=== PATIENT | male | born 1960 | race Caucasian/White ===

== ENCOUNTER 2017-12-25 11:08 | Inpatient (IN) | payer OTHER ==
[~2017-12-25] VITALS: Ht 190.5 cm; Wt 111.1 kg
[2017-12-25 11:12] VITALS: BP 101/70
[2017-12-25 11:37] LABS: HEMATOCRIT 53.1 % (42.0-52.0); HEMOGLOBIN 18.2 gm/dL (14.0-18.0); MCH 31.7 pg (26.0-34.0); MCHC 34.4 g/dL (28.0-37.0); MCV 92.3 fL (80.0-100.0); MPV 7.8 fl. (7.2-11.1); NUCLEATED RBCS 0 /100WBC; PLATELET COUNT* 292 thou/uL (150-400); RBC 5.75 mil/uL (4.50-6.00); RDW-CV 12.4 % (10.5-14.5); WBC 19.6 thou/uL (4.0-11.0)
[2017-12-25 11:38] LABS: URINE BILIRUBIN NEGATIVE (Negative); URINE BLOOD NEGATIVE (Negative); URINE CLARITY CLEAR; URINE COLOR YELLOW; URINE GLUCOSE-RANDOM NEGATIVE (Negative); URINE KETONES TRACE (Negative); URINE LEUKOCYTES-REFLEX NEGATIVE (Negative); URINE NITRITE-REFLEX NEGATIVE (Negative); URINE PROTEIN NEGATIVE (Negative); URINE SPECIFIC GRAVITY >= 1.030 (1.005-1.030)
[2017-12-25 11:49] LABS: ABSOLUTE LYMPHOCYTES 1.4 thou/uL (0.8-5.3); ABSOLUTE MONOCYTES 1.2 thou/uL (0.0-1.2); ABSOLUTE NEUTROPHILS 17.1 thou/uL (1.6-8.1); PLATELET ESTIMATE ADEQUATE
[2017-12-25 11:50] LABS: ANION GAP 10 mmol/L (7-16); BUN 20 mg/dL (7-18); CALCIUM 9.2 mg/dL (8.5-10.1); CHLORIDE 105 mmol/L (98-107); CO2 24 mmol/L (21-32); CREATININE 0.8 mg/dL (0.6-1.3); GLUCOSE 109 mg/dL (70-99); POTASSIUM 4.3 mmol/L (3.5-5.1); SODIUM 139 mmol/L (136-145)
[2017-12-25 12:04] LABS: ALBUMIN 3.8 g/dL (3.4-5.0); ALKALINE PHOSPHATASE 69 U/L (46-116); LIPASE 124 U/L (73-393); SGOT 36 U/L (15-37); SGPT 60 U/L (30-65); TOTAL BILIRUBIN 0.7 mg/dL (<0.1-1.0); TOTAL PROTEIN 8.1 g/dL (6.4-8.2); TROPONIN-I LEVEL <0.06 ng/mL (<0.06)
--- NOTE | 2017-12-25 12:40 | NUR ---
UNABLE TO FIND SKYLER SALCEDO NOTIFIED UPON PT RETURN FROM CT. PT WAS NOT CONNECTED TO MONITOR HE WAS NOT CONNECTED PRIOR TO GOING TO CT
[2017-12-25 16:00] VITALS: BP 111/73
[2017-12-25 17:00] VITALS: BP 102/65
--- NOTE | 2017-12-25 19:19 | NUR ---
ARRIVED TO HOLDING AREA AT 1650 UNTIL ROOM AVAILABLE. SETTLED WITH CALL LIGHT IN REACH. FAMILY AT BEDSIDE UPON ARRIVAL. REPORTING SEVERE ABDOMINAL PAIN, MEDICATING WITH MORPHINE Q 2 HOURS PER ORDERS, RATING PAIN "10", DECREASED TO "8" AFTER MORPHINE, PT REPORTS MORPHINE "DULLS THE PAIN". REMAINS NPO, SWABS AND LIP MOISTURIZER PROVIDED. IVF'S INFUSING. ADDITIONAL SALINE LOCK PLACED, D/T RIGHT AC SITE CAUSING IV PUMP TO ALARM WHEN ELBOW BENT.
--- NOTE | 2017-12-25 19:54 | NUR ---
Report given to shift boss staff. Pt transfered to ortho surg with staff assistance.
[2017-12-25 20:42] VITALS: BP 93/64
--- NOTE | 2017-12-26 00:06 | NUR ---
PATIENT ADMITTED TO UNIT FROM ER AT APPROXIMATELY 2019. VSS ON RA. PAIN WELL CONTROLLED AT THIS TIME. PATIENT RESTING COMFORTABLY. REPORT GIVEN FROM PACU NURSE WHERE PATIENT WAS TEMPORARILY BOARDING. PATIENT ORIENTED TO ROOM AND POLICIES. ADMISSION ROUTINES IN PROGRESS AND FALL EDUCATION GIVEN AND FALL AGREEMENT SIGNED. PATIENT VERBALIZED UNDERSTANDING. PATIENT INSTRUCTED TO USE CALL LIGHT WHEN NEEDING ASSISTANCE. HOURLY ROUNDS TO BE MADE. WILL CONTINUE WITH PLAN OF CARE AND NURSING TO MONITOR.
[2017-12-26 04:49] LABS: ABSOLUTE EOSINOPHILS 0.1 thou/uL (0.0-0.7); ABSOLUTE LYMPHOCYTES 1.1 thou/uL (0.8-5.3); ABSOLUTE MONOCYTES 0.7 thou/uL (0.0-1.2); ABSOLUTE NEUTROPHILS 11.3 thou/uL (1.6-8.1); BASOPHILS 0.3 %; EOSINOPHILS 0.6 %; HEMATOCRIT 48.1 % (42.0-52.0); LYMPHOCYTES 8.6 %; MCH 31.3 pg (26.0-34.0); MCHC 33.3 g/dL (28.0-37.0); MCV 94.2 fL (80.0-100.0); MONOCYTES 5.5 %; MPV 7.7 fl. (7.2-11.1); NUCLEATED RBCS 0 /100WBC; PLATELET COUNT* 261 thou/uL (150-400); RBC 5.11 mil/uL (4.50-6.00); RDW-CV 12.3 % (10.5-14.5); WBC 13.3 thou/uL (4.0-11.0)
[2017-12-26 05:19] LABS: CALCIUM 8.4 mg/dL (8.5-10.1); CREATININE 1.1 mg/dL (0.6-1.3); POTASSIUM 3.9 mmol/L (3.5-5.1)
[2017-12-26 08:18] VITALS: BP 95/65
--- NOTE | 2017-12-26 08:45 | NUR ---
PATIENT HAS SLEPT WELL THROUGHOUT THE NIGHT. PAIN MEDICATIONS GIVEN ORDERED AND CHARTED. PATIENT HAS REMAINED NPO SINCE BEING ADMITTED TO UNIT. NO BM NOTED. IV IN RIGHT AC-SL. IV IN LEFT FOREARM-NS @ 100ML/HR. PATIENT HAS RESTED IN BED DURING THE NIGHT AND HAS NOT BEEN UP OUT OF BED. PATIENT USES BEDSIDE URINAL. IV ABT'S GIVEN WITHOUT ANY ADVERSE SIDE EFFECTS NOTED. PATIENT INSTRUCTED TO USE CALL LIGHT WHEN NEEDING ASSISTANCE. HOURLY ROUNDS MADE. WILL CONTINUE TO MONITOR.
--- NOTE | 2017-12-26 12:55 | NUR ---
ASSUMED CARES OF PT AT 0700. PT IN BED, BED IN LOW LOCKED POSITION, CALL BUTTON AND PERSONAL ITEMS IN PT REACH. PT UP INDEPENDENTLY AND WILL CALL IF NEEDS HELP. PT A&O X4, HRRR PER AUSCULTATION, LCTAB, VSS ON RA, OCC. HYPOTENSIVE, SEE VITAL SIGNS. PT NPO R/T PERFORATED DIVERTICULITIS, ICE CHIPS FOR SWABBING MOUTH. PAIN MODERATELY CONTROLLED WITH IVP MORPHINE. SKIN INTACT. LEFT FA IV AND RAC FIELD STICK BOTH SITES HAVE FLUIDS INFUSING. AFEBRILE, SKIN INTACT WITH SCATTERED BRUISING, SCARS AND TATTOOS. NO EDEMA NOTED. PT PLEASANT, COOPERATIVE. HOURLY ROUNDING CONTINUES. WILL CONTINUE TO MONITOR PT PROGRESS AND STATUS.
--- NOTE | 2017-12-26 14:26 | EKG ---
[place] [address] ELECTROCARDIOGRAM REPORT Name: ROXI CHAPMAN Room: [address] IN M.R.#: [id number] Admission: 12/25/17 Attend Phys: Lillian Bautista DO Discharge: Date of : 60 Report #: [id number] THIS REPORT FOR: //name// [facility] ED Test Date: 2017-12-25 Test Time: 11:45:47 Pat Name: ROXI CHAPMAN Department: Room: [facility] Gender: M Entry Level Electrician: ESTEFANI : 1960 Requested By: Roc Aguilar Order Number: [id number] MD: Vidal Ovalle Measurements Intervals [place] Rate: 76 P: 10 GA: 157 QRS: 48 QRSD: 146 T: -2 QT: 400 QTc: 450 Interpretive Statements Sinus rhythm Right bundle branch block No previous ECG available for comparison Electronically Signed On 12-26-2017 14:26:41 CDT by Vidal Ovalle [email or web address] <ELECTRONICALLY SIGNED> By: Vidal Ovalle MD, [facility] 12/26/17 1426 1145 1145 Vidal Ovalle MD, FAC /EPI
[2017-12-26 16:12] VITALS: BP 106/72
[2017-12-26 21:40] VITALS: BP 117/65
--- NOTE | 2017-12-26 22:26 | NUR ---
REPORT TO ORGANIC LAB WORKER FOR CONTINUED CARES. PT CONTINUES TO HAVE DIFFICULTY KEEPING PAIN TOLERABLE WITH MORPHINE Q2 HRS. VSS. PT COOPERATIVE, FRIENDLY, SMILING. PT UP INDEPENDENLTY, TRYING TO WALK OFF PAIN. CONTINUES TO BE NPO. IV FLUIDS AND ABT TOLERATED.
[2017-12-26 23:51] VITALS: BP 94/65
[2017-12-27 04:00] VITALS: BP 96/60
--- NOTE | 2017-12-27 04:57 | NUR ---
ALERT AND ORIENTED X4. IV PAIN MEDICATION GIVEN AND HELPFUL WITH ABDOMINAL PAIN. CONTINUES ON SEVERAL ANTIBIODICS WITH NO ADVERSE REACHION. REMAINS NPO AT THIS TIME. IVF INFUSING AT THIS TIME. O2 APPLIED AT 2L/NC DUE TO O2 SAT 87% ON ROOM AIR AFTER PAIN MEDICATION GIVEN. CALL LIGHT WITHIN REEC
[2017-12-27 05:22] VITALS: BP 96/60
[2017-12-27 09:00] VITALS: BP 95/57
[2017-12-27 13:08] LABS: ABSOLUTE BASOPHILS 0.1 thou/uL (0.0-0.2); ABSOLUTE EOSINOPHILS 0.1 thou/uL (0.0-0.7); ABSOLUTE LYMPHOCYTES 1.1 thou/uL (0.8-5.3); ABSOLUTE MONOCYTES 0.8 thou/uL (0.0-1.2); ABSOLUTE NEUTROPHILS 9.1 thou/uL (1.6-8.1); BASOPHILS 0.6 %; EOSINOPHILS 1.2 %; HEMATOCRIT 42.1 % (42.0-52.0); HEMOGLOBIN 14.5 gm/dL (14.0-18.0); LYMPHOCYTES 10.2 %; MCH 31.8 pg (26.0-34.0); MCHC 34.3 g/dL (28.0-37.0); MCV 92.7 fL (80.0-100.0); MONOCYTES 7.2 %; MPV 7.4 fl. (7.2-11.1); NUCLEATED RBCS 0 /100WBC; PLATELET COUNT* 220 thou/uL (150-400); POLYS 80.8 %; RBC 4.54 mil/uL (4.50-6.00); RDW-CV 12.1 % (10.5-14.5); WBC 11.3 thou/uL (4.0-11.0)
[2017-12-27 13:12] LABS: CALCIUM 8.2 mg/dL (8.5-10.1); CREATININE 0.8 mg/dL (0.6-1.3); POTASSIUM 3.7 mmol/L (3.5-5.1)
[2017-12-27 16:24] VITALS: BP 133/79
[2017-12-27 21:15] VITALS: BP 162/85
--- NOTE | 2017-12-28 04:42 | NUR ---
ALERT AND ORIENTED X4. UP AD ANDERSON IN ROOM. USING IV PAIN MEDICATION TO HELP WITH ABDOMEN PAIN. NO C/O N/V WITH CURRENT DIET OF CLEAR LIQUIDS. IVF INFUSING WITHOUT DIFFICULTY. URINE REMAINS TEA COLORED BUT OUTPUT AMOUNT GOOD. CALL LIGHT WITHIN REACH. PROGRESSING TOWARD DICHARGE GOAL.
[2017-12-28 06:15] VITALS: BP 105/74
[2017-12-28 08:30] VITALS: BP 119/81
--- NOTE | 2017-12-28 10:18 | NUR ---
ASSUMED CARES OF PT AT 0700. PT IN BED, BED IN LOW LOCKED POSITION. CALL BUTTON AND PERSONAL ITEMS IN PT REACH. PT UP INDEPENDENTLY/STEADY GAIT. PT A&O X4, HR BRADYCARDIC PER AUSCULTATION, LCTAB/DIMINISHED LL. VSS ON RA. AFEBRILE, SKIN INTACT, NO EDEMA. LFA AND RAC IV'S PATENT WITH FLUIDS INFUSING. ABT TREATMENT TOLERATED, NO AVR. PAIN CONTROL ATTEMPTED WITH IVP MEDS. URINE IN URINAL DARK KAIT, OUTPUT WNL. ABD SOFT TO PALPATE, NO DISCOMFORT VERBALIZED. SMALL FORMED BM THIS MORNING. PT PROGRESSING TOWARDS GOAL. HOURLY ROUNDING CONTINUES. WILL CONTINUE TO MONITOR PT PROGRESS;. PT COOPERATIVE, FRIENDLY. GOAL TO CONTROL ABD PAIN AND AMBULATE MORE.
[2017-12-28 17:23] VITALS: BP 123/77
[2017-12-28 20:00] VITALS: BP 124/87
--- NOTE | 2017-12-28 20:12 | NUR ---
PT REMAINS STABLE AT SHIFT CHANGE, UP INDEPENDENTLY. VSS ON RA. HOURLY ROUNDING COMPLETED. IV ABT TREATMENTS TOLERATED. PT PROGRESSING TOWARDS GOAL. REPORT TO HEAD OF ACADEMIC TECHNOLOGY FOR CONTINUED CARES. ALL ASSESSMENTS COMPLETED.
[2017-12-28 21:29] LABS: CALCIUM 8.2 mg/dL (8.5-10.1); CREATININE 0.9 mg/dL (0.6-1.3); MAGNESIUM 1.9 mg/dL (1.8-2.4); POTASSIUM 3.9 mmol/L (3.5-5.1)
[2017-12-29 04:43] VITALS: BP 113/75
[2017-12-29 07:30] VITALS: BP 115/76
--- NOTE | 2017-12-29 07:59 | NUR ---
Alert and oriented x 4. Up independently. He is voiding adequately. Abdominal pain has been less or he is able to tolerate it better. He did have IV pain meds x 2. Dr Rodriguez called for an update last evening. He had been juan f but asymptomatic and EKG was ordered but Hadn't been done yet. Medical consult called to and she placed lab orders and was aware of bradycardia. EKG was done and it was unchanged except that he is bradycardic. Patient has no other symptoms.
[2017-12-29 09:55] LABS: ABSOLUTE BASOPHILS 0.1 thou/uL (0.0-0.2); ABSOLUTE EOSINOPHILS 0.3 thou/uL (0.0-0.7); ABSOLUTE MONOCYTES 0.7 thou/uL (0.0-1.2); ABSOLUTE NEUTROPHILS 5.4 thou/uL (1.6-8.1); BASOPHILS 0.8 %; EOSINOPHILS 4.2 %; HEMATOCRIT 42.5 % (42.0-52.0); HEMOGLOBIN 14.5 gm/dL (14.0-18.0); LYMPHOCYTES 12.9 %; MCH 31.6 pg (26.0-34.0); MCHC 34.2 g/dL (28.0-37.0); MCV 92.4 fL (80.0-100.0); MONOCYTES 9.6 %; MPV 7.6 fl. (7.2-11.1); NUCLEATED RBCS 0 /100WBC; PLATELET COUNT* 261 thou/uL (150-400); POLYS 72.5 %; RDW-CV 11.9 % (10.5-14.5); WBC 7.5 thou/uL (4.0-11.0)
[2017-12-29 10:04] LABS: CREATININE 0.9 mg/dL (0.6-1.3); POTASSIUM 3.8 mmol/L (3.5-5.1)
--- NOTE | 2017-12-29 15:55 | NUR ---
PT.HOPING TO GO HOME TOMORROW. HE LIVES ALONE BUT HAS A SIGNIFICANT OTHER THAT CAN HELP HIM IF NEEDED. HE WORKS. HE SAID HIS INSURANCE SHOULD GO INTO EFFECT THE END OF JANUARY. GAVE HIM PACKET FOR THE UNINSURED AND DISCUSSED. HE DOES NOT FEEL HE WILL HAVE ANY DISCHARGE NEEDS.
[2017-12-29 16:00] VITALS: BP 120/70
--- NOTE | 2017-12-29 17:51 | EKG ---
[place] [address] ELECTROCARDIOGRAM REPORT Name: TORREY CHAPMAN Room: [address] ADM IN M.R.#: [id number] Admission: 12/25/17 Attend Phys: Lillian Bautista DO Discharge: Date of : 60 Report #: [id number] THIS REPORT FOR: //name// [facility] Test Date: 2017-12-28 Test Time: 20:44:46 Pat Name: TORREY CHAPMAN Department: Room: [address] Gender: M Fish And Wildlife Technician: MARIA GUADALUPE : 1960 Requested By: Izzy Klein Order Number: [id number] MD: Torrey Harding Measurements Intervals [place] Rate: 51 P: 20 MS: 166 QRS: 56 QRSD: 143 T: -8 QT: 438 QTc: 404 Interpretive Statements Sinus bradycardia Right bundle branch block Compared to ECG 12/25/2017 11:45:47 No significant changes Electronically Signed On 12-29-2017 17:51:39 CDT by Torrey Harding [email or web address] <ELECTRONICALLY SIGNED> By: Torrey Harding MD, [facility] 12/29/17 [phone] 43 Torrey Harding MD, FAC /EPI
--- NOTE | 2017-12-29 18:56 | NUR ---
ALERT AND ORIENTED X4. UP AD ANDERSON DURING AMBULATION. IV IS PATENT AND SALINE LOCKED. IV IN RIGHT AC DC'D THIS EVENING. TOLERATING REGULAR DIET. PAIN BEING MANAGED WITH PO AND IV PAIN MEDICATION. DENIES NAUSEA. VSS ON ROOM AIR. HOURLY ROUNDS HAVE BEEN MAINTAINED THROUGHOUT SHIFT. CALL LIGHT IS WITHIN REACH. NURSING WILL CONTINUE TO MONITOR.
[2017-12-29 20:30] VITALS: BP 128/77
--- NOTE | 2017-12-30 05:33 | NUR ---
PATIENT HAS SLEPT WELL THROUGHOUT THE NIGHT WITHOUT ANY ISSUES. PAIN WELL CONTROLLED. PATIENT IS UP AD-ANDERSON AND STEADY. NEW IV IN RIGHT FOREARM-SL. IV ABT'S GIVEN WITHOUT ANY ADVERSE SIDE EFFECTS NOTED. PATIENT INSTRUCTED TO USE CALL LIGHT WHEN NEEDING ASSISTANCE. HOURLY ROUNDS MADE. WILL CONTINUE WITH PLAN OF CARE AND NURSING TO MONITOR.
[2017-12-30 07:45] VITALS: BP 125/79
[2017-12-30 11:26] VITALS: BP 125/79
[2017-12-30] MEDS ORDERED: FLAGYL500 MG PO (12:51)
[2017-12-30] MEDS ORDERED: CIPRO500 MG PO (12:52)
[2017-12-30 12:53] VITALS: BP 125/79
[2017-12-30 12:54] VITALS: BP 125/79
--- NOTE | 2017-12-30 15:54 | NUR ---
PATIENT LEFT UNIT AT 1315. ALERT AND ORIENTED X4. UP AD ANDERSON DURING AMBULATION. IV DC'D. DENIES NEED FOR PAIN MEDICATION THIS SHIFT. DENIES NAUSEA. CONTINUE TO TOLERATE A REGULAR DIET. VSS ON ROOM AIR. HOURLY ROUNDS HAVE BEEN MAINTAINED THROUGHOUT SHIFT. ALL PERSONAL ITEMS LEFT WITH PATIENT. DISCHARGE INSTRUCTIONS, PRESCRIPTIONS, AND NEW MEDICATION INFORMATION SENT WITH PATIENT. LEFT WITH FRIEND VIA CAR.
[2017-12-30 15:58] VITALS: BP 125/79
== END 2017-12-30 13:15 | disposition home or self-care (01) | DRG 392 ==
LOC: M.ERS 11:08 → M.TBA-ER 13:56 → M.ORTHSURG 13:56
PROVIDERS: Family Medicine; Internal Medicine; Surgery; ADMIT Surgery
DX: K57.20 Diverticulitis of large intestine with perforation and abscess without bleeding (principal); R65.10 Systemic inflammatory response syndrome (SIRS) of non-infectious origin without acute organ dysfunction; F17.210 Nicotine dependence, cigarettes, uncomplicated; D72.829 Elevated white blood cell count, unspecified; K57.30 Diverticulosis of large intestine without perforation or abscess without bleeding; Z80.52 Family history of malignant neoplasm of bladder; Z80.8 Family history of malignant neoplasm of other organs or systems